=== PATIENT | female | born 2000 | race Caucasian/White ===

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

== ENCOUNTER 2022-01-11 12:30 | Outpatient (RCR) | payer BC, SELFPAY ==
--- NOTE | 2021-12-12 09:15 | HP.PTEVAL ---
Patient's Visit Information ERNESTO MORIN is a 21 year old F referred to Physical Therapy by SAMMIE HdzC with a diagnosis of neck pain and concussion. Date of Evaluation: 12/12/21 Physical Therapist: Shady Murguia, PT, ATC - Visit Plan Frequency: 2-3x /Week Duration: 4-6 Weeks Plan: Postural edu, s/c stretching and strengthening, DTR, manual mobs and PROM, and HEP - Subjective Pt reports she was thrown off of her horse and thrown off over a week ago which resulted in a concussion and a sore neck. Pt believes she may have been knocked unconscious as she only remembers part of the accident. Pt reports she has had x-rays and a CT scan. The x-rays reveled no fractures, and the CT scan revealed a concussion. Pt denies any prior concussions. Pt reports she is still sensitive to light at this time, and she feels like she is in a fog. No tingling or numbness in UE's at this time. Pt reports sleep difficulty at this time secondary to her neck pain. Pt reports she is unable to perform a lot of her IADL's at this time secondary to her neck pain and lack of ROM. 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 - Pain neck pain Pain Intensity (Out of 10): 5 Pain Intensity Range: 6 - Objective Neuro: B UE sensation is WNL to light touch. B bicipital reflex= 2/3. Palpation: Pt has significant guarding throughout C/S at this time. No obvious deformity present at this time. ROM: L rotation 20, R rotation 30, flex 30, ext 25, B side bend 10 degrees. MMT: B UE's are grossly 5/5 throughout when compared bilaterally - Balance/Special Test Scores Oswestry Neck Score: 24 - Goals Goal 1:: Decrease neck pain x 50% to aid with sleep Goal Time Frame: 4-6 Weeks Goal 2:: Increase cervical spine rotation ROM x 20 degrees to aid with IADL's Goal Time Frame: 4-6 Weeks Goal 3:: Increase patients tolerance for performing IADL's x 50% to aid with I at home Goal Time Frame: 4-6 Weeks Goal 4:: I with HEP Goal Time Frame: 4-6 Weeks - Rehabilitation Potential Physical Therapy Diagnosis: Pt has neck pain, significant muscle guarding, and limited c/s ROM secondary to trauma to the c/s from an accident Rehabilitation Potential: Good - Anticipated Interventions Patient/Client Instruction: Educate patient on: Condition, Plan of Care For the Purpose of:: To improve self management Therapeutic Exercise to Include: Flexibilty training, Passive ROM, Active ROM, Scapular Strength/Stabilization For the Purpose of:: To decrease pain, To increase ROM, To improve muscle performance and motor function Manual Therapy Techniques to Include: Soft tissue mobilization For the Purpose of:: To decrease pain, To increase ROM Cryotherapy (ice pack, ice massage): Yes Thermo therapy (hot pack): Yes For the Purpose of:: To decrease pain Thank you for the opportunity to evaluate your patient. For Medicare and Medicare HMO plans, please review the plan of care and approve it. It will need to be FAXED BACK to us at [phone] for Medicare purposes. For Medicare only, by signing this I certify the plan of care. Please let me know if there are questions or concerns regarding this plan of care. Physician Signature: Date:
--- NOTE | 2022-04-24 13:22 | HP.PT.NRP ---
ERNESTO MORIN was seen in my office for initial evaluation on 12/12/21. The following Plan of Care was established for this patient: Initial Frequency: 2-3x /Week Initial Duration: 4-6 Weeks Patient/Client Instruction: Educate patient on: Condition, Plan of Care For the Purpose of:: To improve self management Therapeutic Exercise to Include: Flexibilty training, Passive ROM, Active ROM, Scapular Strength/Stabilization For the Purpose of:: To decrease pain, To increase ROM, To improve muscle performance and motor function Manual Therapy Techniques to Include: Soft tissue mobilization For the Purpose of:: To decrease pain, To increase ROM Cryotherapy (ice pack, ice massage): Yes Thermo therapy (hot pack): Yes For the Purpose of:: To decrease pain This patient was last seen in our office . Pertinent comments regarding their Physical therapy will appear below: Pt was treated for neck pain for PT visits through the date of 01/11/22. Pt has not returned through todays date and is discontinued at this time. At this point I will be discontinuing this patient from physical therapy. I would be happy to see this patient again in the future if found appropriate by the physician. Thank you! Shady Murguia, PT, ATC Balance/Gait/Functional tests - Balance/Special Test Scores Oswestry Neck Score: 24
== END 2022-01-11 19:00 | disposition home or self-care (01) ==
LOC: PT 12:30
PROVIDERS: PCP Pediatrics; Referring Provider Registered Nurse; Visit Provider Registered Nurse
DX: S06.0X9D Concussion with loss of consciousness of unspecified duration, subsequent encounter (principal)
CPT/HCPCS: 97110; 97140; 97161

== ENCOUNTER → 2023-09-25 | Outpatient (CLI) | payer BC, SELFPAY ==
--- OUTSIDE RECORDS SUMMARY | 2023-09-25 19:19 | XMS RPT_ITS | CCD ---
Author Name Unknown Address [address] [place] [address] Organization [facility] Care Team Providers Care Loans Consultant Name Role Phone Nai Yin MD Primary Care Provider ROBERTO EISENBERG Referring Unavailable BETSY CHEUNG Attending Unavailable NAI YIN Primary Care Unavailable NAI YIN Primary Care Unavailable NAI YIN Referring Unavailable ROBERTO EISENBERG Attending Unavailable NAI YIN Primary Care Unavailable ALEXANDRIA HIGGINS Attending Unavailable REFERRED, SELF Referring Unavailable ANI YIN Primary Care Unavailable NAI YIN Attending Unavailable NAI YIN Referring Unavailable ROBERTO EISENBERG Attending Unavailable ROBERTO EISENBERG Referring Unavailable NIA YIN Primary Care Unavailable ROBERTO EISENBERG Attending Unavailable NAI YIN Primary Care Unavailable NAI YIN Referring Unavailable RASHAWN LUND Admitting Unavail able RASHAWN LUND Attending Unavail able NAI YIN Primary Care Unavailable REFERRED, SELF Referring Unavailable NAI YIN Primary Care Unavailable NAI YIN Attending Unavailable Allergies Allergy Classification Reported Allergen(s) Allergy Type Date of Onset Reaction(s) Facility (3 sources) Clindamycin; Translations: [CLINDAMYCIN] Drug Allergy 11-12-2019 Diarrhea [facility] (3 sources) Penicillins; Translations: [PENICILLINS] Drug Allergy [facility] Medications Current Medications Medication Drug Class(es) Dates Sig (Normalized) Sig (Original) 24 hr amphetamine aspartate 5 mg / amphetamine sulfate 5 mg / dextroamphetamine saccharate 5 mg / dextroamphetamine sulfate 5 mg extended release oral capsule (2 sources) Central Nervous System Stimulant Start: 02-06-2022 take 1 capsule by mouth once daily in the morning amphetamine-dext roamphetamine (ADDERALL XR) 20 MG capsule Take 1 Capsule (20 mg) by mouth every morning 90 Capsule 0 02/06/2022 Active Completed/Discontinued Medications Medication Drug Class(es) Dates Sig (Normalized) Sig (Original) calcium chloride 0.0014 meq/ml / potassium chloride 0.004 meq/ml / sodium chloride 0.103 meq/ml / sodium lactate 0.028 meq/ml injectable solution (1 source) Start: 04-25-2022 End: 04-25-2022 CONTINUOUS, Intravenous, at 100 mL/hr, Starting on Sat04/25/22 at 1000, For 90 days, PACU lidocaine 40 mg/ml topical cream (1 source) Antiarrhythmic, Amide Local Anesthetic Start: 04-25-2022 End: 04-25-2022 lidocaine (LMX) 4 % kit Problems Active Problems Problem Classification Problem Date Documented Da te Episodic/Chronic Abdominal pain (2 sources) Epigastric pain; Translations: [Epigastric pain] Onset: 03-27-2022 Episodic Anxiety disorders (2 sources) Anxiety state; Translations: [Generalized anxiety disorder] Onset: 04-04-2012 09-14-2021 Chronic Asthma (2 sources) Uncomplicated mild persistent asthma; Translations: [Mild persistent asthma, uncomplicated] Onset: 10-09-2018 10-09-2018 Chronic Attention-deficit, conduct, and disruptive behavior disorders (2 sources) Attention deficit hyperactivity disorder, predominantly inattentive type; Translations: [Attention-deficit hyperactivity disorder, predominantly inattentive type] Onset: 12-30-2020 12-30-2020 Chronic Headache; including migraine (1 source) Frequent headache; Translations: [Frequent headaches] Onset: 04-10-2022 04-10-2022 Episodic Malaise and fatigue (1 source) Fatigue; Translations: [Other fatigue] Onset: 04-10-2022 04-10-2022 Episodic Mood disorders (2 sources) Major depression in remission; Translations: [Major depressive disorder, single episode, in full remission] Onset: 07-20-2019 07-20-2019 Chronic Other gastrointestinal disorders (1 source) Diarrhea; Translations: [Diarrhea, unspecified] Episodic Other gastrointestinal disorders (2 sources) Stool finding; Translations: [Other fecal abnormalities] Onset: 03-27-2022 Episodic Other nutritional; endocrine; and metabolic disorders (3 sources) Weight loss; Translations: [Abnormal weight loss] Onset: 03-27-2022 Episodic Other upper respiratory disease (2 sources) Allergic rhinitis; Translations: [Allergic rhinitis, unspecified] Onset: 05-28-2012 09-14-2021 Chronic Past or Other Problems Problem Classification Problem Date Documented Date Episodic/Chronic Delirium, dementia, and amnestic and other cognitive disorders (1 source) Postconcussion syndrome; Translations: [Postconcussional syndrome] Onset: 04-10-2022 Resolved: 04-10-2022 04-10-2022 Chronic Esophageal disorders (2 sources) Gastroesophageal reflux disease; Translations: [Gastro-esophageal reflux disease without esophagitis] Onset: 02-16-2009 Resolved: 10-09-2018 10-09-2018 Chronic Other congenital anomalies (2 sources) Congenital anomaly of skin; Translations: [Other specified congenital malformations of skin] Onset: 07-05-2011 Resolved: 10-09-2018 10-09-2018 Chronic Other nutritional; endocrine; and metabolic disorders (2 sources) Overweight in childhood; Translations: [Body mass index (BMI) pediatric, 85th percentile to less than 95th percentile for age] Onset: 01-02-2017 01-02-2017 Episodic Results Test Name Value Interpretation Reference Range Facil ity Vital Signs Date Time Vital Sign Value Performing Clinician Faci lity 04-25-2022 10:30-0400 Body temperature 97.3 [degF] Rashawn Best MD Work Phone: [facility] 04-25-2022 10:30-0400 Diastolic blood pressure 63 mm[Hg] Rashawn Best MD Work Phone: [facility] 04-25-2022 10:30-0400 Heart rate 60 /min Rashawn Best MD Work Phone: [facility] 04-25-2022 10:30-0400 Respiratory rate 11 /min Rashawn Best MD Work Phone: [facility] 04-25-2022 10:30-0400 SaO2% (BldA) [Mass fraction] 100 % Rashawn Best MD Work Phone: [facility] 04-25-2022 10:30-0400 Systolic blood pressure 95 mm[Hg] Rashawn Best MD Work Phone: [facility] 04-25-2022 07:20-0400 Body height 161 cm Rashawn Best MD Work Phone: [facility] Encounters Encounter Date Encounter Type Care Provider Facility Start: 04-25-2022 End: 04-25-2022 ambulatory [facility] Start: 04-25-2022 End: 04-25-2022 Preprocedural examination done Rashawn Best MD Work Phone: [facility] Start: 04-25-2022 End: 04-25-2022 Subsequent hospital visit by physician Rashawn Best MD Work Phone: [facility] Procedures Date Procedure Procedure Detail Performing Clinician Start: 04-25-2022 Urine test visual color cmprsn meths Betsy Cheung 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 Work Phone: Start: 11-02-2021 Radiologic exam abdo men 1 view Roberto Eisenberg MD Work Phone: Plan of Treatment Date Care Activity Detail Author Start: 04-29-2025 Tetanus Diphtheria and Pertussis Vaccines (7 - Td or Tdap) Tetanus Diphtheria and Pertussis Vaccines (7 - Td or Tdap) [facility] Start: 04-25-2022 End: 04-25-2022 ENDOSCOPY (UPPER AND COLONOSCOPY) ENDOSCOPY (UPPER AND COLONOSCOPY) Weight loss Abdominal pain, epigastric Change in stool 04/25/2022 9:15 AM EDT [facility] Start: 04-05-2022 FLU (#1) FLU (#1) [facility] Start: 03-26-2022 End: 03-26-2022 Patient encounter procedure 03/26/2022 Office Visit [place] [address] [facility] - [place] Start: 04-05-2021 FLU (#1) FLU (#1) [facility] Start: 03-24-2021 Well Visit Well Visit [facility] Start: 09-24-2020 Hepatitis A (2 of 2 - 2-dose series) Hepatitis A (2 of 2 - 2-dose series) [facility] Start: 2020 Hearing Screening Hearing Screening [facility] Start: 2018 MenB (1 of 2 - MenB 2-Dose Series) MenB (1 of 2 - MenB 2-Dose Series) [facility] Start: 2017 Vision Screening Vision Screening [facility] Start: 2013 HPV (1 - 2-dose series) HPV (1 - 2-dose series) [facility] Start: 2007 COVID-19 (1) COVID-19 (1) [facility] Start: 03-15-2003 COVID-19 (#1) COVID-19 (#1) [facility] Disaccharidase Analysis [facility] Immunizations Immunization Date Immunization Notes Care Provider Fa cility 03-24-2020 hepatitis A vaccine, pediatric/adolescent dosage, 2 dose schedule Roberto Eisenberg MD Work Phone: [facility] 03-24-2020 meningococcal polysaccharide (groups A, C, Y and W-135) diphtheria toxoid conjugate vaccine (MCV4P) Roberto Eisenberg MD Work Phone: [facility] 04-29-2015 tetanus toxoid, redu ayse diphtheria toxoid, and acellular pertussis vaccine, adsorbed Roberto Esienberg MD Work Phone: [facility] 03-23-2008 measles, mumps and rubella virus vaccine Roberto Eisenberg MD Work Phone: [facility] 03-23-2008 varicella virus vaccine Arsenio Eisenberg MD Work Phone: [facility] 03-18-2008 diphtheria, tetanus toxoids and acellular pertussis vaccine Roberto Eisenberg MD Work Phone: [facility] 03-18-2008 haemophilus influenz ae type b vaccine, PRP-T conjugate Roberto Eisenberg MD Work Phone: [facility] 03-18-2008 poliovirus vaccine, inactivated Roberto Eisenberg MD Work Phone: [facility] 11-05-2005 varicella virus vaccine Arsenio Eisenberg MD Work Phone: [facility] 08-15-2005 diphtheria, tetanus toxoids and acellular pertussis vaccine Roberto Eisenberg MD Work Phone: [facility] 08-15-2005 haemophilus influenz ae type b vaccine, conjugate unspecified formulation Roberto Eisenberg MD Work Phone: [facility] 08-15-2005 haemophilus influenz ae type b vaccine, PRP-T conjugate Roberto Eisenberg MD Work Phone: [facility] 09-30-2003 diphtheria, tetanus toxoids and acellular pertussis vaccine Roberto Eisenberg MD Work Phone: [facility] 09-30-2003 haemophilus influenz ae type b vaccine, PRP-T conjugate Roberto Eisenberg MD Work Phone: [facility] 09-30-2003 measles, mumps and rubella virus vaccine Roberto Eisenberg MD Work Phone: [facility] 09-30-2003 poliovirus vaccine, inactivated Roberto Eisenberg MD Work Phone: [facility] 04-30-2003 diphtheria, tetanus toxoids and acellular pertussis vaccine Roberto Eisenberg MD Work Phone: [facility] 04-30-2003 diphtheria, tetanus toxoids and acellular pertussis vaccine, unspecified formulation Roberto Eisenberg MD Work Phone: [facility] 04-30-2003 haemophilus influenz ae type b conjugate and Hepatitis B vaccine Roberto Eisenberg MD Work Phone: [facility] 04-30-2003 haemophilus influenz ae type b vaccine, PRP-T conjugate Roberto Eisenberg MD Work Phone: [facility] 04-30-2003 hepatitis B vaccine, pediatric or pediatric/adolescent dosage Roberto Eisenberg MD Work Phone: [facility] 04-30-2003 poliovirus vaccine, inactivated Roberto Eisenberg MD Work Phone: [facility] 2002 diphtheria, tetanus toxoids and acellular pertussis vaccine Roberto Eisenberg MD Work Phone: [facility] 2002 diphtheria, tetanus toxoids and acellular pertussis vaccine, unspecified formulation Roberto Eisenberg MD Work Phone: [facility] 2002 haemophilus influenz ae type b conjugate and Hepatitis B vaccine Roberto Eisenberg MD Work Phone: [facility] 2002 haemophilus influenz ae type b vaccine, PRP-T conjugate Roberto Eisenberg MD Work Phone: [facility] 2002 hepatitis B vaccine, pediatric or pediatric/adolescent dosage Roberto Eisenberg MD Work Phone: [facility] 2002 poliovirus vaccine, inactivated Roberto Eisenberg MD Work Phone: [facility] 2002 hepatitis B vaccine, pediatric or pediatric/adolescent dosage Roberto Eisenberg MD Work Phone: [facility] Payers Date Payer Category Payer Unknown [employer] P[employer] [id number] 2021-Present [address] [place] [address] [id number] 2002 Unknown [id number] 2002 Unknown [id number] 2002 Unknown [id number] 2002 Unknown [id number] 2002 Unknown [id number] 2002 Unknown [id number] 2002 Unknown [id number] 2002 Unknown [id number] Unknown [id number] Social History Date Type Detail Facility Start: 06-07-2017 Tobacco smoking stat [facility] Never smoked tobacco [facility] Start: 06-07-2017 End: 04-10-2022 Tobacco use and exposure Smokeless tobacco non-user [facility] Start: 11-02-2021 End: 04-10-2022 Alcohol intake Lifetime non-drinker (finding) [facility] Start: 2002 Sex Assigned At Not on file A [facility] Start: 10-23-2021 End: 04-25-2022 Exposure to SARS-CoV-2 (event) Not sure [facility] Start: 04-10-2022 [facility] History of tobacco use Cigarette Smoker A [facility] History of tobacco use Tobacco U se Types Packs/Day Years Used Date Smoking Tobacco: Every Day Cigarettes Vaping Smokeless Tobacco: Never [facility] Clinical Notes 11-02-2021 to 04-25-2022 Plan of Evi - Jael Mayes RN - 04/25/2022 10:20 AM EDTPlan of Jael Arshad RN - 04/25/2022 10:20 AM EDTOp Note - Rashawn Lund MD - 04/25/2022 9:46 AM EDT Note Date & Type Note Facility 04-25-2022 Plan of care note Problem: Anxiety, Patient/Family Goal: Effective coping Outcome: Completed Problem: Body Temperature - Abnormal, Risk of Goal: Body temperature within specified parameters Outcome: Completed Problem: Nausea/Vomiting Goal: Post operative nausea and vomiting Outcome: Completed Problem: Gas Exchange - Impaired Goal: Absence of hypoxia Outcome: Completed Problem: Fluid Volume Imbalance, Risk of Goal: Absence of imbalanced fluid volume signs and symptoms Outcome: Completed Problem: Falls, Risk of Goal: Absence of falls Outcome: Completed Goal: Absence of physical injury Outcome: Completed Problem: Infection Risk, Surgical Site Goal: Absence of infection signs and symptoms Outcome: Completed Problem: Adverse Surgical Event, Risk of Goal: Absence of injury Outcome: Completed Problem: Pain - Acute Goal: Reduced pain sensation Outcome: Completed Problem: Transition Readiness Goal: Knowledge of discharge instructions Outcome: Completed [facility] 04-25-2022 Miscellaneous Notes Formattin g of this note might be different from the original. Problem: Anxiety, Patient/Family Goal: Effective coping Outcome: Completed Problem: Body Temperature - Abnormal, Risk of Goal: Body temperature within specified parameters Outcome: Completed Problem: Nausea/Vomiting Goal: Post operative nausea and vomiting Outcome: Completed Problem: Gas Exchange - Impaired Goal: Absence of hypoxia Outcome: Completed Problem: Fluid Volume Imbalance, Risk of Goal: Absence of imbalanced fluid volume signs and symptoms Outcome: Completed Problem: Falls, Risk of Goal: Absence of falls Outcome: Completed Goal: Absence of physical injury Outcome: Completed Problem: Infection Risk, Surgical Site Goal: Absence of infection signs and symptoms Outcome: Completed Problem: Adverse Surgical Event, Risk of Goal: Absence of injury Outcome: Completed Problem: Pain - Acute Goal: Reduced pain sensation Outcome: Completed Problem: Transition Readiness Goal: Knowledge of discharge instructions Outcome: Completed Patient Leighann CISNEROS Date of Birth2000 Record [id number] Date/Time of Procedure04/25/2022 , 9:08:00 AM Referring Physician Vita CALDWELL PROCEDURE PERFORMED EGD INDICATIONS FOR EXAMINATION Weight loss [R63.4] Abdominal pain, epigastric [R10.13] Change in stool [R19.5] R63.4 Abnormal weight loss R10.13 Epigastric pain R19.5 Other fecal abnormalities INSTRUMENTS GIF H190 PROCEDURE TECHNIQUE A physical exam was performed. Informed consent was obtained from the patient's parents/guardian after explaining all the risks (perforation, bleeding, infection and adverse effects to the medicine), benefits and alternatives to the procedure which the patient's parents appeared to understand and so stated. The patient was connected to the monitoring devices and placed in the supine position. Continuous oxygen was provided and IV medicine administered through a indwelling cannula. After adequate general anesthesia was achieved, the patient was intubated and the scope advanced under direct visualization to the third part of duodenum The esophagus, stomach and duodenum were identified by visual landmarks. The scope was subsequently removed slowly while carefully examining the color, texture, anatomy, and integrity of the mucosa on the way out. The patient was subsequently transferred to the recovery area in satisfactory condition. ESTIMATED BLOOD LOSSNone ML FINDINGS Normal mucosa from the mid esophagus to the ge junction. Biopsy obtained, results pending. Mild nodular mucosa in the antrum. Biopsy obtained, results pending. Normal mucosa from the first part of duodenum to the third part of duodenum. Biopsy obtained, results pending. ENDOSCOPIC DIAGNOSIS Mild nodularity in the antrum RECOMMENDATIONS Pending biopsy. Patient NameLINDA CISNEROS Date of Birth2000 Record [id number] Date/Time of Procedure04/25/2022 , 9:08:00 AM Referring Physician Vita CALDWELL PROCEDURE PERFORMED Colonoscopy INDICATIONS FOR EXAMINATION Weight loss [R63.4] Abdominal pain, epigastric [R10.13] Change in stool [R19.5] R63.4 Abnormal weight loss R10.13 Epigastric pain R19.5 Other fecal abnormalities INSTRUMENTS CF [id number] PROCEDURE TECHNIQUE A physical exam was performed. Informed consent was obtained from the patient's parents/guardian after explaining all the risks (perforation, bleeding, infection and adverse effects to the medicine), benefits and alternatives to the procedure which the patient's parents appeared to understand and so stated. The patient was connected to the monitoring devices and placed in the supine position. Continuous oxygen was provided and IV medicine administered thru an indwelling cannula. After adequate general anesthesia was achieved, a digital exam was performed and the colonoscope introduced in to the rectum and advanced under direct visualization to the terminal ileum The ascending colon, descending colon, transverse colon and terminal ileum were identified by visual landmarks. The scope was subsequently removed slowly while carefully examining the color, texture, anatomy, and integrity of the mucosa on the way out. In the rectum, the scope was retroflexed to evaluate for internal hemorrhoids and anorectal pathology. The patient was subsequently transferred to the recovery area in satisfactory condition. Bowel Prep Quality: Excellent ESTIMATED BLOOD LOSS1 ML FINDINGS Normal mucosa from the rectum to the terminal ileum. Biopsy obtained, results pending. ENDOSCOPIC DIAGNOSIS Normal colonoscopy from the rectum to the terminal ileum RECOMMENDATIONS Pending biopsy. Problem: Anxiety, Patient/Family Goal: Effective coping Outcome: Ongoing Problem: Falls, Risk of Goal: Absence of falls Outcome: Ongoing Goal: Absence of physical injury Outcome: Ongoing Problem: Infection Risk, Surgical Site Goal: Absence of infection signs and symptoms Outcome: Ongoing Problem: Adverse Surgical Event, Risk of Goal: Absence of injury Outcome: Ongoing documented in this encounter [facility] 04-25-2022 Procedure note Patient NameLINDA CISNEROS Date of Birth2000 Record [id number] Date/Time of Procedure04/25/2022 , 9:08:00 AM Referring Physician Vita CALDWELL PROCEDURE PERFORMED EGD INDICATIONS FOR EXAMINATION Weight loss [R63.4] Abdominal pain, epigastric [R10.13] Change in stool [R19.5] R63.4 Abnormal weight loss R10.13 Epigastric pain R19.5 Other fecal abnormalities INSTRUMENTS GIF H190 PROCEDURE TECHNIQUE A physical exam was performed. Informed consent was obtained from the patient's parents/guardian after explaining all the risks (perforation, bleeding, infection and adverse effects to the medicine), benefits and alternatives to the procedure which the patient's parents appeared to understand and so stated. The patient was connected to the monitoring devices and placed in the supine position. Continuous oxygen was provided and IV medicine administered through a indwelling cannula. After adequate general anesthesia was achieved, the patient was intubated and the scope advanced under direct visualization to the third part of duodenum The esophagus, stomach and duodenum were identified by visual landmarks. The scope was subsequently removed slowly while carefully examining the color, texture, anatomy, and integrity of the mucosa on the way out. The patient was subsequently transferred to the recovery area in satisfactory condition. ESTIMATED BLOOD LOSSNone ML FINDINGS Normal mucosa from the mid esophagus to the ge junction. Biopsy obtained, results pending. Mild nodular mucosa in the antrum. Biopsy obtained, results pending. Normal mucosa from the first part of duodenum to the third part of duodenum. Biopsy obtained, results pending. ENDOSCOPIC DIAGNOSIS Mild nodularity in the antrum RECOMMENDATIONS Pending biopsy. [facility] 04-25-2022 Procedure note Patient NameLINDA CISNEROS Date of Birth2000 Record [id number] Date/Time of Procedure04/25/2022 , 9:08:00 AM Referring Physician Vita CALDWELL PROCEDURE PERFORMED Colonoscopy INDICATIONS FOR EXAMINATION Weight loss [R63.4] Abdominal pain, epigastric [R10.13] Change in stool [R19.5] R63.4 Abnormal weight loss R10.13 Epigastric pain R19.5 Other fecal abnormalities INSTRUMENTS CF [id number] PROCEDURE TECHNIQUE A physical exam was performed. Informed consent was obtained from the patient's parents/guardian after explaining all the risks (perforation, bleeding, infection and adverse effects to the medicine), benefits and alternatives to the procedure which the patient's parents appeared to understand and so stated. The patient was connected to the monitoring devices and placed in the supine position. Continuous oxygen was provided and IV medicine administered thru an indwelling cannula. After adequate general anesthesia was achieved, a digital exam was performed and the colonoscope introduced in to the rectum and advanced under direct visualization to the terminal ileum The ascending colon, descending colon, transverse colon and terminal ileum were identified by visual landmarks. The scope was subsequently removed slowly while carefully examining the color, texture, anatomy, and integrity of the mucosa on the way out. In the rectum, the scope was retroflexed to evaluate for internal hemorrhoids and anorectal pathology. The patient was subsequently transferred to the recovery area in satisfactory condition. Bowel Prep Quality: Excellent ESTIMATED BLOOD LOSS1 ML FINDINGS Normal mucosa from the rectum to the terminal ileum. Biopsy obtained, results pending. ENDOSCOPIC DIAGNOSIS Normal colonoscopy from the rectum to the terminal ileum RECOMMENDATIONS Pending biopsy. [facility] 04-25-2022 Plan of care note Problem: Anxiety, Patient/Family Goal: Effective coping Outcome: Ongoing Problem: Falls, Risk of Goal: Absence of falls Outcome: Ongoing Goal: Absence of physical injury Outcome: Ongoing Problem: Infection Risk, Surgical Site Goal: Absence of infection signs and symptoms Outcome: Ongoing Problem: Adverse Surgical Event, Risk of Goal: Absence of injury Outcome: Ongoing [facility] 04-25-2022 Attending History and physical note H&P reviewed, patient examined, no changes have occured since H&P completed. Source Note - Betsy Cheung APRN-CNP - 04/10/2022 10:30 AM EDT PRE-OP CONSULTATION DATE OF SERVICE: 04/10/2022 FRUIT CHECKER PROVIDER: MITCHEL Alonzo SURGICAL DIAGNOSIS: Weight loss, epigastric abdominal pain, and change in stool Proposed surgery date: 04/25/2022 [facility] Proposed surgical procedure: ENDOSCOPY (UPPER AND COLONOSCOPY) with biopsies and disaccharidases Advice/opinion was requested by Roberto Eisenberg MD for pre-surgical consultation. CHIEF COMPLAINT: Abdominal pain HISTORY OF PRESENT ILLNESS: Linda Cisneros is a 21 y.o. female with a PMH significant for ADHD, anxiety, depression, exercise induced asthma, weight loss, headaches, and epigastric abdominal pain who presents today for perioperative evaluation. The history is provided by the patient and mother and a chart review for evaluation for surgical risk factors. Abdominal pain: Onset:August 2020. Location: epigastric. frequency: doesn't happen as ofen if she is consistent with omeprazole, but if a dose is skipped by the next day her stomach is upset . Quality: stabbing, sometimes feels like heart burn, but lower. Alleviating factors: omeprazole. Aggravating factors: skipping medications and pickles. Vomiting: none. Nausea: yes, 3-4 times a week. Regurgitation: feels like it comes up a little bit, but not all the way. Trouble swallowing: yes, feels like food gets stuck in the back of her throat and drinking water does not help. Decreased appetite: yes, but has improved. Weight loss: yes, about 30 pounds since last year. Bowel movements: Frequency: ~2 times a week. Consistency: large volume, looks like a bunch of small balls clumped together, has a sense of urgency and cramping before bowel movement. Blood in stools: once. Blood on toilet paper with wiping: none Symptoms are not improving with conservative therapy and will need to proceed to the OR. Positive for COVID on July 2021. COVID symptoms included:cough, stuffy nose, loss of taste and smell, mild fever and lasted for-2 weeks.Then returned to baseline activity level. This patient was assessed for potential MIS-C sequelae and was negative for persistent fever, tachycardia, shortness of breath, fatigue, GI symptoms, rashes/ conjunctivitis. MEDICAL/SURGICAL HISTORY: History reviewed. No pertinent past medical history. Past Surgical History: Procedure Laterality Date KNEE SURGERY Left 2017 Past hospitalizations:none DRUG/FOOD ALLERGIES: Allergies Allergen Reactions Penicillins Hives Clindamycin Diarrhea MEDICATIONS: Outpatient Encounter Medications as of 04/10/2022 Medication Sig Dispense Refill albuterol 108 (90 Base) MCG/ACT inhaler Inhale 2 Puffs into the lungs every 6 hours as needed for Wheezing ondansetron (ZOFRAN-ODT) 4 MG disintegrating tablet Take 1 Tablet (4 mg) by mouth every 8 hours as needed for Nausea 10 Tablet 0 omeprazole (PRILOSEC) 40 MG capsule TAKE 1 CAPSULE BY MOUTH EVERY DAY 90 Capsule 1 amphetamine-dextroamphetamine (ADDERALL XR) 20 MG capsule Take 1 Capsule (20 mg) by mouth every morning 90 Capsule 0 sertraline (ZOLOFT) 50 MG tablet Take 1 Tablet (50 mg) by mouth daily 90 Tablet 1 dicyclomine (BENTYL) 20 MG Take 1 Tablet (20 mg) by mouth every 8 hours as needed for Pain 60 Tablet 2 metroNIDAZOLE 0.75 % CREA Apply small amount to area 3x/day x 10 days 45 g 0 [DISCONTINUED] TraMADol (ULTRAM) 50 MG tablet Take by mouth every 6 hours as needed for Pain (Patient not taking: Reported on 04/10/2022) No facility-administered encounter medications on file as of 04/10/2022. ANESTHESIA HISTORY: Difficulty with anesthesia? No Family history of difficulty with anesthesia? no Signs/symptoms of PEREZ? no BLEEDING HISTORY: History of bleeding issues in patient? no Bleeding problems in family? no History of anemia in patient? no Sickle Cell issues in patient or family? no REVIEW OF SYSTEMS: Comprehensive review of systems: General ROS: positive for - fatigue (TSH 1.930 WNL- 09/26/2021), sleep disturbance Psychological ROS: positive for - ADHD, anxiety, depression Ophthalmic ROS: positive for - uses contacts Allergy and Immunology ROS: positive for - seasonal allergies Respiratory ROS: positive for - h/o exercise inducted asthma-ACT score- 25. Last used during high school lacrosse in 2020 Cardiovascular ROS: negative for - murmur Gastrointestinal ROS: positive for - abdominal pain, constipation, swallowing difficulty, and nausea Neurological ROS: negative for - seizures. Positive for headaches. h/o concussion and neck pain in October 2021 after falling off a horse. Followed by [facility] neurology, still has headaches, but was cleared to resume activities 02-05-2022 per mom. Did PT for neck pain which has improved. Per OSH notes in epic-brain MRI from 12/2021 was normal, CT of cervical spine, thoracic spine spine and head done in ED at OSH were normal. Dermatological ROS: positive for - sensitive skin A complete ROS was performed. Pertinent positives have been documented above or are in the HPI. All other systems were negative. Recent Illnesses? no HISTORY: History Weight: 3.345 kg Delivery Method: Vaginal Gestation Age: 40 wks DEVELOPMENTAL HISTORY: Milestones: Not pertinent IMMUNIZATIONS: Up to date SOCIAL/FAMILY HISTORY: Linda lives with family Special Needs: uses contacts Preferred Language: [employer]: graduated high school Family History Problem Relation Age of Onset Irritable Bowel Syndrome Mother Kidney Stones Father Vesicoureteral Reflux Brother Kidney Disease Paternal Uncle nephrectomy at age 21 due to mass Irritable Bowel Syndrome Maternal Grandmother Colon Cancer Paternal Grandmother Cancer Paternal Grandmother Kidney Transplant Neg Hx Peritoneal Dialysis Dependent Neg Hx Hemodialysis Dependent Neg Hx Anesth Problems Neg Hx Bleeding Problem Neg Hx Blood Disorders Neg Hx Celiac Disease Neg Hx Colon Polyps Neg Hx Constipation Neg Hx Crohn's Disease Neg Hx Cystic Fibrosis Neg Hx Eosinophilic Esophagitis Neg Hx Gallbladder Disease Neg Hx Gastroesophageal reflux Neg Hx Liver Disease Neg Hx Pancreatic Disease Neg Hx Stomach Ulcer(s) Neg Hx Thyroid Disease Neg Hx Ulcerative Colitis Neg Hx Social History Tobacco Use Smoking Status Every Day Types: Cigarettes, Vaping Smokeless Tobacco Never VITAL SIGNS: Vitals: 04/10/22 1010 BP: 127/79 Pulse: 86 Resp: 12 Temp: 36.4 C (97.5 F) Ht Readings from Last 1 Encounters: 04/10/22 160.5 cm (33 %, Z= -0.43)* * Growth percentiles are based on CDC (Girls, 2-20 Years) data. Wt Readings from Last 1 Encounters: 04/10/22 53.9 kg (32 %, Z= -0.46)* * Growth percentiles are based on CDC (Girls, 2-20 Years) data. 40.570 %ile (Z= -0.24) based on CDC (Girls, 2-20 Years) BMI-for-age based on BMI available as of 04/10/2022. SpO2 Readings from Last 3 Encounters: 04/10/22 100% PHYSICAL EXAM: General: Patient appears healthy, well developed, well nourished, in no acute distress Head: atraumatic and normocephalic Neuro: alert, oriented appropriately for age Eyes: pupils equal, round, and reactive to light, sclera and conjunctiva clear, extraocular movements are intact Ears: canals clear, normal, tragus nontender, TM's clear bilaterally Nose: nares patent without discharge Dentition: intact Throat: oropharynx is clear, mucous membranes are pink and moist without lesions Neck: there is full range of motion Chest: breath sounds are clear to auscultation bilaterally without rales, rhonchi, or wheezes Cardiac: regular rate and rhythm, normal S1 and S2, no murmur, rub, or gallop, peripheral pulses strong and equal, capillary refill is brisk Abdomen: soft and nondistended, tenderness to epigastric region Back: deferred : deferred Skin: pink, warm, well perfused Lymphatic: No supraclavicular adenopathy noted and no cervical adenopathy noted Musculoskeletal: Moves all extremities DIAGNOSTIC STUDIES REVIEWED: The following lab results have been ordered/reviewed. -preop urine HCG ordered Calcium Date Value Ref Range Status 09/26/2021 9.7 7.6 - 11.0 mg/dL Final Carbon Dioxide Date Value Ref Range Status 09/26/2021 23.4 22.0 - 29.0 mmol/L Final Chloride Date Value Ref Range Status 09/26/2021 104 96 - 108 mmol/L Final Creatinine Date Value Ref Range Status 09/26/2021 0.80 0.50 - 1.00 mg/dL Final Glucose Date Value Ref Range Status 09/26/2021 77 70 - 99 mg/dL Final Comment: Criteria for Diagnosis of Diabetes: Fasting Specimen (no caloric intake for at least 8 hours): <100 mg/dL Normal 100-125 mg/dL Increased risk for Diabetes >125 mg/dL Diagnostic for Diabetes Random Glucose (any time of day without regard to last meal): > or = 200 mg/dL plus Classic Symptoms of Diabetes Potassium Date Value Ref Range Status 09/26/2021 4.9 3.3 - 5.1 mmol/L Final Sodium Date Value Ref Range Status 09/26/2021 138 133 - 145 mmol/L Final BUN Date Value Ref Range Status 09/26/2021 12 4 - 19 mg/dL Final RBC Date Value Ref Range Status 09/26/2021 4.90 4.00 - 4.90 10E12/L Final RDW Date Value Ref Range Status 09/26/2021 12.3 0.0 - 14.4 % Final WBC Date Value Ref Range Status 09/26/2021 4.4 (L) 4.5 - 11.0 10E9/L Final Hematocrit Date Value Ref Range Status 09/26/2021 42.8 36.0 - 44.0 % Final Hemoglobin Date Value Ref Range Status 09/26/2021 14.5 12.0 - 15.0 g/dl Final MCH Date Value Ref Range Status 09/26/2021 29.6 26.0 - 34.0 pg Final MCHC Date Value Ref Range Status 09/26/2021 33.9 31.0 - 37.0 % Final MCV Date Value Ref Range Status 09/26/2021 87.3 80.0 - 100.0 fl Final MPV Date Value Ref Range Status 09/26/2021 10.7 fl Final Comment: MPV is platelet range and age dependent % Eosinophils Date Value Ref Range Status 09/26/2021 0.70 0.00 - 3.00 % Final % Monocytes Date Value Ref Range Status 09/26/2021 8.20 (H) 3.00 - 6.00 % Final % Neutrophils Date Value Ref Range Status 09/26/2021 50.1 35.0 - 66.0 % Final Neutrophil # Date Value Ref Range Status 09/26/2021 2.2 2.0 - 7.2 10E3/uL Final Hemoglobin Date Value Ref Range Status 09/26/2021 14.5 12.0 - 15.0 g/dl Final No results found for: APTT, INR No results found for: TSH, G3KNLKX, N4FOVJU, THYROIDAB ASSESSMENT: Patient Active Problem List Diagnosis Anxiety state, unspecified Allergic rhinitis, cause unspecified BMI (body mass index), pediatric, 85% to less than 95% for age Mild persistent asthma Depression, major, in remission ADHD, predominantly inattentive type Weight loss Abdominal pain, epigastric Change in stool Frequent headaches Fatigue Linda Cisneros is a 21 y.o. female with ADHD, anxiety, depression, exercise induced asthma, weight loss, headaches, and epigastric abdominal pain. The patient presents today for a history and physical for the above mentioned surgical procedure in good condition. Based on this evaluation for surgical risk factors and review of necessary clinical studies (if indicated), she has no other past medical history or past surgical history that would impact this procedure. PLAN: -Surgery as scheduled -Educated family that if patient develops viral illness, fever, requires unexpected breathing treatments or antibiotics or any other changes prior to surgery to notify the surgery center. -Educated family to stop all herbals/multivitamins/ibuprofen products 2 weeks prior. -POC urine HCG ordered H/O: Asthma: ACT Score 25, no preop albuterol required. Has not used albuterol since 2020. -Synera patch ordered Care coordination: Nai Yin MD OTHER FINDINGS OR COMMENTS: Cc: MD Betsy Traore APRN-CNP 04/10/2022 11:49 AM [facility] Work Phone: 04-25-2022 History and physical note H&P reviewed, patient examined, no changes have occured since H&P completed. Source Note - Betsy Cheung APRN-CNP - 04/10/2022 10:30 AM EDT PRE-OP CONSULTATION DATE OF SERVICE: 04/10/2022 FRUIT CHECKER PROVIDER: MITCHEL Alonzo SURGICAL DIAGNOSIS: Weight loss, epigastric abdominal pain, and change in stool Proposed surgery date: 04/25/2022 [facility] Proposed surgical procedure: ENDOSCOPY (UPPER AND COLONOSCOPY) with biopsies and disaccharidases Advice/opinion was requested by Roberto Eisenberg MD for pre-surgical consultation. CHIEF COMPLAINT: Abdominal pain HISTORY OF PRESENT ILLNESS: Linda Cisneros is a 21 y.o. female with a PMH significant for ADHD, anxiety, depression, exercise induced asthma, weight loss, headaches, and epigastric abdominal pain who presents today for perioperative evaluation. The history is provided by the patient and mother and a chart review for evaluation for surgical risk factors. Abdominal pain: Onset:August 2020. Location: epigastric. frequency: doesn't happen as ofen if she is consistent with omeprazole, but if a dose is skipped by the next day her stomach is upset . Quality: stabbing, sometimes feels like heart burn, but lower. Alleviating factors: omeprazole. Aggravating factors: skipping medications and pickles. Vomiting: none. Nausea: yes, 3-4 times a week. Regurgitation: feels like it comes up a little bit, but not all the way. Trouble swallowing: yes, feels like food gets stuck in the back of her throat and drinking water does not help. Decreased appetite: yes, but has improved. Weight loss: yes, about 30 pounds since last year. Bowel movements: Frequency: ~2 times a week. Consistency: large volume, looks like a bunch of small balls clumped together, has a sense of urgency and cramping before bowel movement. Blood in stools: once. Blood on toilet paper with wiping: none Symptoms are not improving with conservative therapy and will need to proceed to the OR. Positive for COVID on July 2021. COVID symptoms included:cough, stuffy nose, loss of taste and smell, mild fever and lasted for-2 weeks.Then returned to baseline activity level. This patient was assessed for potential MIS-C sequelae and was negative for persistent fever, tachycardia, shortness of breath, fatigue, GI symptoms, rashes/ conjunctivitis. MEDICAL/SURGICAL HISTORY: History reviewed. No pertinent past medical history. Past Surgical History: Procedure Laterality Date KNEE SURGERY Left 2017 Past hospitalizations:none DRUG/FOOD ALLERGIES: Allergies Allergen Reactions Penicillins Hives Clindamycin Diarrhea MEDICATIONS: Outpatient Encounter Medications as of 04/10/2022 Medication Sig Dispense Refill albuterol 108 (90 Base) MCG/ACT inhaler Inhale 2 Puffs into the lungs every 6 hours as needed for Wheezing ondansetron (ZOFRAN-ODT) 4 MG disintegrating tablet Take 1 Tablet (4 mg) by mouth every 8 hours as needed for Nausea 10 Tablet 0 omeprazole (PRILOSEC) 40 MG capsule TAKE 1 CAPSULE BY MOUTH EVERY DAY 90 Capsule 1 amphetamine-dextroamphetamine (ADDERALL XR) 20 MG capsule Take 1 Capsule (20 mg) by mouth every morning 90 Capsule 0 sertraline (ZOLOFT) 50 MG tablet Take 1 Tablet (50 mg) by mouth daily 90 Tablet 1 dicyclomine (BENTYL) 20 MG Take 1 Tablet (20 mg) by mouth every 8 hours as needed for Pain 60 Tablet 2 metroNIDAZOLE 0.75 % CREA Apply small amount to area 3x/day x 10 days 45 g 0 [DISCONTINUED] TraMADol (ULTRAM) 50 MG tablet Take by mouth every 6 hours as needed for Pain (Patient not taking: Reported on 04/10/2022) No facility-administered encounter medications on file as of 04/10/2022. ANESTHESIA HISTORY: Difficulty with anesthesia? No Family history of difficulty with anesthesia? no Signs/symptoms of PEREZ? no BLEEDING HISTORY: History of bleeding issues in patient? no Bleeding problems in family? no History of anemia in patient? no Sickle Cell issues in patient or family? no REVIEW OF SYSTEMS: Comprehensive review of systems: General ROS: positive for - fatigue (TSH 1.930 WNL- 09/26/2021), sleep disturbance Psychological ROS: positive for - ADHD, anxiety, depression Ophthalmic ROS: positive for - uses contacts Allergy and Immunology ROS: positive for - seasonal allergies Respiratory ROS: positive for - h/o exercise inducted asthma-ACT score- 25. Last used during high school lacrosse in 2020 Cardiovascular ROS: negative for - murmur Gastrointestinal ROS: positive for - abdominal pain, constipation, swallowing difficulty, and nausea Neurological ROS: negative for - seizures. Positive for headaches. h/o concussion and neck pain in October 2021 after falling off a horse. Followed by OSH neurology, still has headaches, but was cleared to resume activities 02-05-2022 per mom. Did PT for neck pain which has improved. [facility] from 12/2021 was normal, CT of cervical spine, thoracic spine spine and head done in ED at OSH were normal. Dermatological ROS: positive for - sensitive skin A complete ROS was performed. Pertinent positives have been documented above or are in the HPI. All other systems were negative. Recent Illnesses? no HISTORY: History Weight: 3.345 kg Delivery Method: Vaginal Gestation Age: 40 wks DEVELOPMENTAL HISTORY: Milestones: Not pertinent IMMUNIZATIONS: Up to date SOCIAL/FAMILY HISTORY: Linda lives with family Special Needs: uses contacts Preferred Language: [employer]: graduated high school Family History Problem Relation Age of Onset Irritable Bowel Syndrome Mother Kidney Stones Father Vesicoureteral Reflux Brother Kidney Disease Paternal Uncle nephrectomy at age 21 due to mass Irritable Bowel Syndrome Maternal Grandmother Colon Cancer Paternal Grandmother Cancer Paternal Grandmother Kidney Transplant Neg Hx Peritoneal Dialysis Dependent Neg Hx Hemodialysis Dependent Neg Hx Anesth Problems Neg Hx Bleeding Problem Neg Hx Blood Disorders Neg Hx Celiac Disease Neg Hx Colon Polyps Neg Hx Constipation Neg Hx Crohn's Disease Neg Hx Cystic Fibrosis Neg Hx Eosinophilic Esophagitis Neg Hx Gallbladder Disease Neg Hx Gastroesophageal reflux Neg Hx Liver Disease Neg Hx Pancreatic Disease Neg Hx Stomach Ulcer(s) Neg Hx Thyroid Disease Neg Hx Ulcerative Colitis Neg Hx Social History Tobacco Use Smoking Status Every Day Types: Cigarettes, Vaping Smokeless Tobacco Never VITAL SIGNS: Vitals: 04/10/22 1010 BP: 127/79 Pulse: 86 Resp: 12 Temp: 36.4 C (97.5 F) Ht Readings from Last 1 Encounters: 04/10/22 160.5 cm (33 %, Z= -0.43)* * Growth percentiles are based on CDC (Girls, 2-20 Years) data. Wt Readings from Last 1 Encounters: 04/10/22 53.9 kg (32 %, Z= -0.46)* * Growth percentiles are based on CDC (Girls, 2-20 Years) data. 40.570 %ile (Z= -0.24) based on CDC (Girls, 2-20 Years) BMI-for-age based on BMI available as of 04/10/2022. SpO2 Readings from Last 3 Encounters: 04/10/22 100% PHYSICAL EXAM: General: Patient appears healthy, well developed, well nourished, in no acute distress Head: atraumatic and normocephalic Neuro: alert, oriented appropriately for age Eyes: pupils equal, round, and reactive to light, sclera and conjunctiva clear, extraocular movements are intact Ears: canals clear, normal, tragus nontender, TM's clear bilaterally Nose: nares patent without discharge Dentition: intact Throat: oropharynx is clear, mucous membranes are pink and moist without lesions Neck: there is full range of motion Chest: breath sounds are clear to auscultation bilaterally without rales, rhonchi, or wheezes Cardiac: regular rate and rhythm, normal S1 and S2, no murmur, rub, or gallop, peripheral pulses strong and equal, capillary refill is brisk Abdomen: soft and nondistended, tenderness to epigastric region Back: deferred : deferred Skin: pink, warm, well perfused Lymphatic: No supraclavicular adenopathy noted and no cervical adenopathy noted Musculoskeletal: Moves all extremities DIAGNOSTIC STUDIES REVIEWED: The following lab results have been ordered/reviewed. -preop urine HCG ordered Calcium Date Value Ref Range Status 09/26/2021 9.7 7.6 - 11.0 mg/dL Final Carbon Dioxide Date Value Ref Range Status 09/26/2021 23.4 22.0 - 29.0 mmol/L Final Chloride Date Value Ref Range Status 09/26/2021 104 96 - 108 mmol/L Final Creatinine Date Value Ref Range Status 09/26/2021 0.80 0.50 - 1.00 mg/dL Final Glucose Date Value Ref Range Status 09/26/2021 77 70 - 99 mg/dL Final Comment: Criteria for Diagnosis of Diabetes: Fasting Specimen (no caloric intake for at least 8 hours): <100 mg/dL Normal 100-125 mg/dL Increased risk for Diabetes >125 mg/dL Diagnostic for Diabetes Random Glucose (any time of day without regard to last meal): > or = 200 mg/dL plus Classic Symptoms of Diabetes Potassium Date Value Ref Range Status 09/26/2021 4.9 3.3 - 5.1 mmol/L Final Sodium Date Value Ref Range Status 09/26/2021 138 133 - 145 mmol/L Final BUN Date Value Ref Range Status 09/26/2021 12 4 - 19 mg/dL Final RBC Date Value Ref Range Status 09/26/2021 4.90 4.00 - 4.90 10E12/L Final RDW Date Value Ref Range Status 09/26/2021 12.3 0.0 - 14.4 % Final WBC Date Value Ref Range Status 09/26/2021 4.4 (L) 4.5 - 11.0 10E9/L Final Hematocrit Date Value Ref Range Status 09/26/2021 42.8 36.0 - 44.0 % Final Hemoglobin Date Value Ref Range Status 09/26/2021 14.5 12.0 - 15.0 g/dl Final MCH Date Value Ref Range Status 09/26/2021 29.6 26.0 - 34.0 pg Final MCHC Date Value Ref Range Status 09/26/2021 33.9 31.0 - 37.0 % Final MCV Date Value Ref Range Status 09/26/2021 87.3 80.0 - 100.0 fl Final MPV Date Value Ref Range Status 09/26/2021 10.7 fl Final Comment: MPV is platelet range and age dependent % Eosinophils Date Value Ref Range Status 09/26/2021 0.70 0.00 - 3.00 % Final % Monocytes Date Value Ref Range Status 09/26/2021 8.20 (H) 3.00 - 6.00 % Final % Neutrophils Date Value Ref Range Status 09/26/2021 50.1 35.0 - 66.0 % Final Neutrophil # Date Value Ref Range Status 09/26/2021 2.2 2.0 - 7.2 10E3/uL Final Hemoglobin Date Value Ref Range Status 09/26/2021 14.5 12.0 - 15.0 g/dl Final No results found for: APTT, INR No results found for: TSH, A0UAOBP, P5KNLYA, THYROIDAB ASSESSMENT: Patient Active Problem List Diagnosis Anxiety state, unspecified Allergic rhinitis, cause unspecified BMI (body mass index), pediatric, 85% to less than 95% for age Mild persistent asthma Depression, major, in remission ADHD, predominantly inattentive type Weight loss Abdominal pain, epigastric Change in stool Frequent headaches Fatigue Linda Cisneros is a 21 y.o. female with ADHD, anxiety, depression, exercise induced asthma, weight loss, headaches, and epigastric abdominal pain. The patient presents today for a history and physical for the above mentioned surgical procedure in good condition. Based on this evaluation for surgical risk factors and review of necessary clinical studies (if indicated), she has no other past medical history or past surgical history that would impact this procedure. PLAN: -Surgery as scheduled -Educated family that if patient develops viral illness, fever, requires unexpected breathing treatments or antibiotics or any other changes prior to surgery to notify the surgery center. -Educated family to stop all herbals/multivitamins/ibuprofen products 2 weeks prior. -POC urine HCG ordered H/O: Asthma: ACT Score 25, no preop albuterol required. Has not used albuterol since 2020. -Synera patch ordered Care coordination: Nai Yin MD OTHER FINDINGS OR COMMENTS: Cc: MD Betsy Traore APRN-CNP 04/10/2022 11:49 AM documented in this encounter [facility] 04-10-2022 Note PRE-OP CONSULTATION DATE OF SERVICE: 04/10/2022 FRUIT CHECKER PROVIDER: Betsy M Jonatan, 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 SURGICAL DIAGNOSIS: Weight loss, epigastric abdominal pain, and change in stool Proposed surgery date: 04/25/2022 [facility] Proposed surgical procedure: ENDOSCOPY (UPPER AND COLONOSCOPY) with biopsies and disaccharidases Advice/opinion was requested by Roberto Eisenberg MD for pre-surgical consultation. CHIEF COMPLAINT: Abdominal pain HISTORY OF PRESENT ILLNESS: Linda Cisneros is a 21 y.o. female with a PMH significant for ADHD, anxiety, depression, exercise induced asthma, weight loss, headaches, and epigastric abdominal pain who presents today for perioperative evaluation. The history is provided by the patient and mother and a chart review for evaluation for surgical risk factors. Abdominal pain: Onset:August 2020. Location: epigastric. frequency: doesn't happen as ofen if she is consistent with omeprazole, but if a dose is skipped by the next day her stomach is upset . Quality: stabbing, sometimes feels like heart burn, but lower. Alleviating factors: omeprazole. Aggravating factors: skipping medications and pickles. Vomiting: none. Nausea: yes, 3-4 times a week. Regurgitation: feels like it comes up a little bit, but not all the way. Trouble swallowing: yes, feels like food gets stuck in the back of her throat and drinking water does not help. Decreased appetite: yes, but has improved. Weight loss: yes, about 30 pounds since last year. Bowel movements: Frequency: ~2 times a week. Consistency: large volume, looks like a bunch of small balls clumped together, has a sense of urgency and cramping before bowel movement. Blood in stools: once. Blood on toilet paper with wiping: none Symptoms are not improving with conservative therapy and will need to proceed to the OR. Positive for COVID on July 2021. COVID symptoms included:cough, stuffy nose, loss of taste and smell, mild fever and lasted for-2 weeks.Then returned to baseline activity level. This patient was assessed for potential MIS-C sequelae and was negative for persistent fever, tachycardia, shortness of breath, fatigue, GI symptoms, rashes/ conjunctivitis. MEDICAL/SURGICAL HISTORY: History reviewed. No pertinent past medical history. Past Surgical History: Procedure Laterality Date KNEE SURGERY Left 2017 Past hospitalizations:none DRUG/FOOD ALLERGIES: Allergies Allergen Reactions Penicillins Hives Clindamycin Diarrhea MEDICATIONS: Outpatient Encounter Medications as of 04/10/2022 Medication Sig Dispense Refill albuterol 108 (90 Base) MCG/ACT inhaler Inhale 2 Puffs into the lungs every 6 hours as needed for Wheezing ondansetron (ZOFRAN-ODT) 4 MG disintegrating tablet Take 1 Tablet (4 mg) by mouth every 8 hours as needed for Nausea 10 Tablet 0 omeprazole (PRILOSEC) 40 MG capsule TAKE 1 CAPSULE BY MOUTH EVERY DAY 90 Capsule 1 amphetamine-dextroamphetamine (ADDERALL XR) 20 MG capsule Take 1 Capsule (20 mg) by mouth every morning 90 Capsule 0 sertraline (ZOLOFT) 50 MG tablet Take 1 Tablet (50 mg) by mouth daily 90 Tablet 1 dicyclomine (BENTYL) 20 MG Take 1 Tablet (20 mg) by mouth every 8 hours as needed for Pain 60 Tablet 2 metroNIDAZOLE 0.75 % CREA Apply small amount to area 3x/day x 10 days 45 g 0 [DISCONTINUED] TraMADol (ULTRAM) 50 MG tablet Take by mouth every 6 hours as needed for Pain (Patient not taking: Reported on 04/10/2022) No facility-administered encounter medications on file as of 04/10/2022. ANESTHESIA HISTORY: Difficulty with anesthesia? No Family history of difficulty with anesthesia? no Signs/symptoms of PEREZ? no BLEEDING HISTORY: History of bleeding issues in patient? no Bleeding problems in family? no History of anemia in patient? no Sickle Cell issues in patient or family? no REVIEW OF SYSTEMS: Comprehensive review of systems: General ROS: positive for - fatigue (TSH 1.930 WNL- 09/26/2021), sleep disturbance Psychological ROS: positive for - ADHD, anxiety, depression Ophthalmic ROS: positive for - uses contacts Allergy and Immunology ROS: positive for - seasonal allergies Respiratory ROS: positive for - h/o exercise inducted asthma-ACT score- 25. Last used during high school lacrosse in 2020 Cardiovascular ROS: negative for - murmur Gastrointestinal ROS: positive for - abdominal pain, constipation, swallowing difficulty, and nausea Neurological ROS: negative for - seizures. Positive for headaches. h/o concussion and neck pain in October 2021 after falling off a horse. Followed by [facility] neurology, still has headaches, but was cleared to resume activities 02-05-2022 per mom. Did PT for neck pain which has improved. Per OSH notes in epic-brain MRI from 12/2021 was normal, CT of cervical spine, thoracic spine spine and head done in ED at OSH were normal. Dermatological ROS: positive for - sensitive skin A complete ROS was performed. Pertinent positives have been documented (more content not included)... [facility] 11-02-2021 Note Linda Cisneros is h ere for consultation at the request of Nai Yin MD for: ABD pain and weight loss ---History from patient History of Present Illness My advice was requested by Nai Yin MD. She is accompanied by her friend of family. No assistant speech language pathologist was used. ABD pain - Lower back with constipation ---EG area - achy/dull pain - ? acid - burning ---Not every day - ? 4/7 days per week ---no waking from sleep ---? eating may make it worse - nothing particular ---Issues have been going on Jul 2021 (GF and had covid) Stooling - Diarrhea/Consipated ---Now balloon in stomach - can't pass gas ---Gas-X helps ---2x per week - hard; can be very large ---Blood - only seen with stool samples ---NO waking stool UO - doing well ---no hematuria ---has recurrent UTIs (3x in past year) N/V - +Increased nausea; no vomiting Appetite - Decrease over time Growth - Continues with weight loss ---25lb in the past 10 months (5lb in past month) Activity - Decreased overall ---'feel really really weak ---gets light headed ---shaky Fevers - No issues Rashes - on Arms/antecubital fossa ---also on lip as well Joints - Swollen in legs/calves --- always had knee problems Mouth - No sores recently ---Aug-Sep 2021 - had some consistent sores Eyes - No issues ACE - all the time Currently - Overall patient feeling worse overall ---last time she was normal; Mar 2021 was last time Past Medical History History reviewed. No pertinent past medical history. Past Surgical History Past Surgical History: Procedure Laterality Date KNEE SURGERY Allergies Allergies Allergen Reactions Penicillins Hives Clindamycin Diarrhea Medications Outpatient Encounter Medications as of 11/02/2021 Medication Sig Dispense Refill amphetamine-dextroamphetamine (ADDERALL XR) 20 MG capsule Take 1 Capsule (20 mg) by mouth every morning 90 Capsule 0 [DISCONTINUED] omeprazole (PRILOSEC) 20 MG capsule TAKE 1 CAPSULE BY MOUTH EVERY DAY 30 Capsule 2 traZODone (DESYREL) 50 MG tablet Take 0.5 Tablets (25 mg) by mouth nightly at bedtime May increase to 1 tab at night if needed 90 Tablet 1 metroNIDAZOLE 0.75 % CREA Apply small amount to area 3x/day x 10 days 45 g 0 sertraline (ZOLOFT) 25 MG tablet Take 1 Tablet (25 mg) by mouth daily May increase to 2 tabs/day after 1 week if needed. 53 Tablet 0 omeprazole (PRILOSEC) 40 MG capsule Take 1 Capsule (40 mg) by mouth daily 30 Capsule 3 dicyclomine (BENTYL) 20 MG Take 1 Tablet (20 mg) by mouth every 8 hours as needed for Pain 60 Tablet 2 No facility-administered encounter medications on file as of 11/02/2021. Family Medical History Family History Problem Relation Age of Onset Irritable Bowel Syndrome Mother Kidney Stones Father Vesicoureteral Reflux Brother Kidney Disease Paternal Uncle nephrectomy at age 21 due to mass Irritable Bowel Syndrome Maternal Grandmother Colon Cancer Paternal Grandmother Cancer Paternal Grandmother Kidney Transplant Neg Hx Peritoneal Dialysis Dependent Neg Hx Hemodialysis Dependent Neg Hx Anesth Problems Neg Hx Bleeding Problem Neg Hx Blood Disorders Neg Hx Celiac Disease Neg Hx Colon Polyps Neg Hx Constipation Neg Hx Crohn's Disease Neg Hx Cystic Fibrosis Neg Hx Eosinophilic Esophagitis Neg Hx Gallbladder Disease Neg Hx Gastroesophageal reflux Neg Hx Liver Disease Neg Hx Pancreatic Disease Neg Hx Stomach Ulcer(s) Neg Hx Thyroid Disease Neg Hx Ulcerative Colitis Neg Hx Social History Social History Socioeconomic History Marital status: Single Spouse name: None Number of children: None Years of education: None Highest education level: None Tobacco Use Smoking status: Never Smoker Smokeless tobacco: Never Used Substance and Sexual Activity Alcohol use: Never Drug use: Never Diet Social History Water source for child? Well Review of Systems Review of Systems Constitutional: Positive for weight loss. Negative for recurrent fevers and weight gain. HENT: Negative for trouble swallowing. Eyes: Negative for wears glasses. Respiratory: Negative for coughing, wheezing and asthma. Cardiovascular: Negative for heart murmur, heart problems and chest pain. Endocrine: Negative for poor growth. Gastrointestinal: Positive for abdominal pain. Negative for constipation, diarrhea, vomiting, heartburn, blood in stool, trouble swallowing and nausea. Genitourinary: Negative for dysuria, hematuria and frequent urination. Neurological: Negative for developmental delays and seizures. Musculoskeletal: Negative for joint pain. Skin: Negative for rash. Allergy/Immune: Negative for allergies. Hematology: Negative for no easy bleeding and no anemia. The patient's past medical, surgical history, family history, and medications were reviewed and updated in [facility] (electronic medical record). Physical Examination Vitals: 11/02/21 1327 T (more content not included)... [facility] Pre-operative examination Preoperative examination, unspecified Weight loss Loss of weight Abdominal pain, epigastric Change in stool Nonspecific abnormal finding in stool contents documented in this encounter [facility] Advance Directives No Advanced Directives Records FoundDocuments on File Type Date Recorded Patient Manager Battery Expl anation Power of Singeing Torch Operator Summary Purpose Family History No Family History Records FoundNo Family History Records Found Additional Source Comments Care Teams (unrecognized sec tion and content) Loans Consultant Relationship Specialty Start Date End Date Nia Yin MD [address] [place] [address] PCP - General Pediatrics 04/14/20 INFORMATION SOURCE (unrecogn ized section and content) DATE CREATED AUTHOR AUTHOR'S ORGANIZ ATION 05/06/2022 [facility] Reason for Visit (unrecogniz ed section and content) Referral ID Status Reason Start Date Expiration Date Visits Re quested Visits Authorized [id number] 1 Scheduled Active and Recently Administ ered Medications (unrecognized section and content) Continuous Medication Order 04/23/2022 04/24/2022 04/25/2022 Lactated Ringers IV (CANCELED) CONTINUOUS, Intravenous, at 100 mL/hr, Starting on Sat04/25/22 at 1000, For 90 days, PACU 0953 (Restarted from Bag - Provider: Jael Mayes RN)1030 (Stopped - Provider: Jael Mayes RN) PRN Medication Order 04/23/2022 04/24/2022 04/25/2022 Oxygen (CANCELED) See Flowsheet Row, PRN, Starting on Sat04/25/22 at 0952, Until Sat04/25/22 at 1042, Keep sats greater or equal to 95% 0944 (Gas Start - Pr ovider: Jael Mayes RN)1004 (Gas Stop - Provider: Jael Mayes RN) FOR RECORDS PERTAINING TO PATIENTS WHO ARE OR HAVE BEEN ENROLLED IN A CHEMICAL DEPENDENCY/SUBSTANCEABUSE PROGRAM, SOME INFORMATION MAY BE OMITTED. This clinical summary was aggregated from multiple sources. Caution should be exercised in using it in the provision of clinical care. This summary normalizes information from multiple sources, and as a consequence, information in this document may materially change the coding, format and clinical context of patient data. In addition, data may be omitted in some cases. CLINICAL DECISIONS SHOULD BE BASED ON THE PRIMARY CLINICAL RECORDS. [facility]. provides no warranty or guarantee of the accuracy or completeness of information in this document.
== END | disposition home or self-care (01) ==
LOC: LABSPEC 14:58
PROVIDERS: PCP Pediatrics; Referring Provider Nurse Practitioner Family; Visit Provider Nurse Practitioner Family
DX: N39.0 Urinary tract infection, site not specified (principal)
CPT/HCPCS: 87077; 87086; 87088; 87186